=== PATIENT | male | born 1950 | race Caucasian/White ===

== ENCOUNTER 2016-08-01 11:00 | Inpatient (IN) | payer OTHER, MEDICARE ==
[~2016-08-01] VITALS: Ht 182.9 cm; Wt 67.4 kg
== END 2016-08-04 15:08 | disposition home or self-care (01) | DRG 372 ==
LOC: ER 11:00 → MED 11:03 → ER 11:03 → MED 17:02 → ER 17:02 → MED 08-02 02:58
PROVIDERS: ADMIT Internal Medicine
DX: A04.4 Other intestinal Escherichia coli infections (principal); K56.60 Unspecified intestinal obstruction; G89.4 Chronic pain syndrome; F17.210 Nicotine dependence, cigarettes, uncomplicated; Z90.49 Acquired absence of other specified parts of digestive tract; Z88.8 Allergy status to other drugs, medicaments and biological substances; Z80.42 Family history of malignant neoplasm of prostate; M54.9 Dorsalgia, unspecified; F41.9 Anxiety disorder, unspecified; F32.9 Major depressive disorder, single episode, unspecified; G47.33 Obstructive sleep apnea (adult) (pediatric)
CPT/HCPCS: 36415; 74020; 87507; J2550; Q9963

== ENCOUNTER 2016-08-01 11:00 | Emergency (ER) | payer MEDICARE | END 2016-08-01 17:01 | disposition critical access hospital (66) | LOC: ER 11:00 | DX: K56.60 Unspecified intestinal obstruction (principal); F32.9 Major depressive disorder, single episode, unspecified; F41.9 Anxiety disorder, unspecified; Z87.891 Personal history of nicotine dependence | CPT/HCPCS: 36415; 96361; 96374; J2550 ==